=== PATIENT | female | born 1980 | race Caucasian/White ===

== ENCOUNTER 2016-10-24 16:34 | Emergency (ER) | payer BC ==
[2016-10-24 16:47] VITALS: BP 113/70; PULSE 73; RESP 14; TEMP 99.3; O2SAT 96
--- NOTE | 2016-10-24 17:09 | UCPHY ---
H & P Time Seen by Provider: 10/24/16 16:59 Patient Type: Established HPI/ROS: This patient has cough with burning sensation substernally when she coughs. Symptoms been present for a week. She had fever the 1st 2 days of illness which has since nearly resolved with a low-grade fevers now. She has a feeling of chest congestion associated with the symptoms. Her had similar symptoms recently and improve with antibiotics. She requests antibiotics for her symptoms. No exacerbating or alleviating factors. ROS: No significant fatigue. HEENT: No throat pain. Neuro: No headache. Pulmonary: No respiratory distress. No hemoptysis. 7 point ROS is otherwise negative Past Medical/Surgical History: Otherwise healthy Smoking Status: Never smoked Physical Exam: Physical Exam Vital signs are normal. General: No acute distress HEENT: Nose: Clear discharge bilaterally. No sinus tenderness to percussion. Ears: External canals and tympanic membranes are clear with no erythema or abnormal findings bilaterally. Oropharynx: No erythema or exudates. No dysphonia. No drooling or stridor. Eyes: Pupils equal and react to light. Extraocular motions are intact. Neck: Supple Lungs: Mild expiratory wheeze bilaterally. No rales or rhonchi. Cardiac: Regular rate and rhythm with no murmur gallop or rub Skin: No rash or pallor. Neuro: Alert with no focal deficits noted. Initial differential diagnosis: Viral versus bacterial bronchitis., URI with cough with RAD Constitutional: Initial Vital Signs Temperature (C) 37.4 C 10/24/16 16:36 Heart Rate 73 10/24/16 16:36 Respiratory Rate 14 10/24/16 16:36 Blood Pressure 113/70 10/24/16 16:36 O2 Sat (%) 96 10/24/16 16:36 O2 Delivery Mode Room Air Allergies/Adverse Reactions: doxycycline Allergy (Verified 10/24/16 16:35) erythromycin base [Erythromycin Base] Allergy (Verified 10/24/16 16:35) Home Medications: Medication Instructions Recorded Albuterol Hfa Anes Only [Proair 2 puffs IH Q4 PRN #1 mdi 10/24/16 Hfa Icu (*)] Azithromycin [Zithromax] 250 mg PO DAILY #6 tab 10/24/16 MDM/Departure - MDM ED Course/Re-evaluation: This patient appears clinically well without evidence of lower respiratory infection. I counseled her regarding bronchitis. - Depart Disposition: Home, Routine, Self-Care Clinical Impression: Acute bronchitis Qualifiers: Bronchitis organism: unspecified organism Qualified Code(s): J20.9 - Acute bronchitis, unspecified Condition: Good Instructions: Acute Bronchitis (ED) Additional Instructions: Diagnosis: Acute bronchitis Plan: Humidifier Albuterol inhaler with spacer for cough, wheeze or shortness of breath Zithromax antibiotic Ibuprofen Tylenol if needed for discomfort. Return for any significant worsening despite the treatment plan Prescriptions: Albuterol Hfa Anes Only [Proair Hfa Icu (*)] 2 puffs IH Q4 PRN #1 mdi PRN Reason: Wheezing Azithromycin [Zithromax] 250 mg PO DAILY #6 tab Referrals: Melinda Monreal, [employer] [Primary Care Provider] - As per Instructions - PQRS PQRS Measurement: NA
== END 2016-10-24 17:12 | disposition home or self-care (01) ==
LOC: CED 16:34
DX: J20.9 Acute bronchitis, unspecified (principal)
CPT/HCPCS: 99214-PO; G0463-PO

== ENCOUNTER 2018-08-04 11:44 | Outpatient (CLI) | payer BC ==
[2018-08-04] MEDS ORDERED: PROPOFOL/EMULSION 500 MG/50 ML BOTTLE IV ONE ×2 (12:24→12:29)
[2018-08-04] MEDS ORDERED: PROPOFOL 200 MG/20 ML VIAL ONE (12:24)
[2018-08-04] MEDS ORDERED: MIDAZOLAM 2 MG/2 ML VIAL ONE (12:27)
[2018-08-04] MEDS ORDERED: GADOBUTROL 10 ML VIAL IVP ONE (12:50)
[2018-08-04] MEDS ORDERED: ALBUTEROL 3 ML DEYVIAL IH PRN (14:11)
[2018-08-04] MEDS ORDERED: NALOXONE HCL 0.4 MG/ML INJ IVP PRN (14:11)
[2018-08-04] MEDS ORDERED: ACETAMINOPHEN 500 MG TAB PO PRN (14:11)
--- NOTE | 2018-08-04 14:11 | POSTANESTH ---
Post Anesthetic Evaluation Cardiovascular Status: Similar to Pre-Op Cond Respiratory Status: Similar to Pre-op Cond. Level of Consciousness/Mental Status: Mildly Sleepy, Arousable Pain Control: Adequate, Prn Tx Ordered Nausea/Vomiting Control: Adequate, Prn Tx Ordered Complications Possibly Related to Anesthesia: None Noted
--- NOTE | 2018-08-04 14:11 | PDANEPAE ---
ANE Past Medical History - Cardiovascular History Hx Hypertension: No Hx Arrhythmias: No Hx Chest Pain: No Hx Coronary Artery / Peripheral Vascular Disease: No Hx CHF / Valvular Disease: No Hx Palpitations: No - Pulmonary History Hx COPD: No Hx Asthma/Reactive Airway Disease: No Hx Recent Upper Respiratory Infection: No Hx Oxygen in Use at Home: No Hx Sleep Apnea: No Sleep Apnea Screening Result - Last Documented: Negative - Neurologic History Hx Cerebrovascular Accident: No Hx Seizures: No Hx Dementia: No - Endocrine History Hx Diabetes: No - Renal History Hx Renal Disorders: No - Liver History Hx Hepatic Disorders: No - Neurological & Psychiatric Hx Hx Neurological and Psychiatric Disorders: No - Cancer History Hx Cancer: No - Congenital Disorder History Hx Congenital Disorders: No - GI History Hx Gastrointestinal Disorders: No - Other Health History Other Health History: none - Chronic Pain History Chronic Pain: Yes - Surgical History Prior Surgeries: L labrum and humeral head repair November 2016. R ACL meniscus repair 2015. L Rotator cuff repair 2013 & 2014. R ACL repair 2011 ANE Review of Systems Review of Systems: - Exercise capacity METS (RN): 6 METS ANE Patient History - Allergies Allergies/Adverse Reactions: doxycycline Allergy (Verified 10/24/16 16:35) erythromycin base [Erythromycin Base] Allergy (Verified 10/24/16 16:35) - Smoking Hx Smoking Status: Never smoked - Family Anes Hx Family Hx Anesthesia Complications: none ANE Labs/Vital Signs - Vital Signs Blood Pressure: 115/79 Heart Rate: 67 Respiratory Rate: 20 O2 Sat (%): 100 Height: 157.48 cm Weight: 58.967 kg ANE Physical Exam - Airway Neck exam: FROM Mallampati Score: Class 1 Mouth exam: normal dental/mouth exam - Pulmonary Pulmonary: no respiratory distress - Cardiovascular Cardiovascular: regular rate and rhythym - ASA Status ASA Status: I ANE Anesthesia Plan Total IV Anesthesia: Yes
[2018-08-04 15:27] VITALS: BP 101/59
[2018-08-04] MEDS ORDERED: LIDOCAINE 2% 2 ML INJ ONE (19:48)
[2018-08-04] MEDS ORDERED: ONDANSETRON 4 MG/2 ML VIAL ONE (19:48)
== END 2018-08-04 16:08 | disposition home or self-care (01) ==
LOC: FIMAGING 11:44
PROVIDERS: ATTEND Internal Medicine Endocrinology, Diabetes & Metabolism
DX: R51 Headache (principal)
CPT/HCPCS: A9585; J2250; J2405; J2704

== ENCOUNTER 2018-12-21 12:04 | Outpatient (CLI) | payer BC | END 2018-12-21 16:30 | disposition home or self-care (01) | LOC: FIMAGING 12:04 ==

== ENCOUNTER 2019-01-09 14:22 | Outpatient (CLI) | payer BC | END 2019-01-09 17:58 | disposition home or self-care (01) | LOC: FIMAGING 14:22 ==